=== PATIENT | male | born 1995 ===

== ENCOUNTER 2024-12-16 13:30 | Outpatient (RCR) | payer OTHER, SELFPAY ==
[2024-11-25 09:58] VITALS: BP 92/62; PULSE 60; TEMP 36.8
--- NOTE | 2024-11-25 11:02 | HO.PS.ADMBH ---
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 - Owe to everyone to be best he can be Gets at least 6hrs- /night feels a little rested TAkes a bit for brainmto sleep = brain conjours up scenarios, what friends are thinking Past Psychiatric History: [facility] hospitalization, started lexapro [facility] Medical History (Updated 11/28/24 @ 14:10 by Keyla Briceño MD) Autism No known health problems Narrative: PDD had special ed - IEP/504 Narrative: some kind surgery as youngester (hypospadius?) Family History: ?matgm-dep not sure Social History: [facility] in [place]- in preschool - College after HS- 7 years in preschool [employer] and then [employer]- in earlychildhood- strong work ethic= likes to help others like his dad did- Dad sudden 3 years ago = had just retired few weeks- Worked at [employer] 42 years, 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 [place]- Mom line 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 at [facility] [place] has a dog- has online group - friend wellness call - close daily- getting me to do more stuff support group in person iffy- not prof- a friend from there= - coworker close with Substance History: etoh socially - no drugs Trauma History: sudden of dad- came in on him- 10pm- dad not breathing- did cpr on him mom 911- a week later Diagnostics Vital Signs (24Hr): Vital Signs - 24 hr 11/25/24 09:58 Temperature 98.2 F Pulse Rate 60 Blood Pressure 92/62 Meds/Allergies Meds Home Medications ?Medication ?Instructions ?Recorded ?Confirmed ?Type escitalopram oxalate 10 mg tablet 10 mg PO DAILY 11/25/24 11/25/24 History Allergies Allergies Allergy/AdvReac Type Severity Reaction Status Date / Time No Known Allergies Allergy Verified 11/25/24 09:28 Mental Status Exam Mental Status Exam Patient Appearance: Appropriate (for most part) and Unkempt (mildly unshaven) Patient Orientation: Person Level of Consciousness: Awake and Appropriate Patient Behavior: Appropriate, Cooperative, Passive and Good Eye Contact Mood Description: Appropriate and Anxious Affect Description: Constricted Patient Cognition Impaired: No Ability to Follow Directions: Good Speech Pattern: Clear Hallucinations: None Delusions: Not Present Thought Process: Intact Thought Content: positive for Intact Depressive Symptoms: Difficulty Sleeping (settling mind at sleep ) Judgement: Fair Assessment & Plan Assessment & Plan (1) Autism: Status: Acute Code(s): F84.0 - Autistic disorder (2) Depressed: Status: Acute Code(s): F32.A - Depression, unspecified (3) Anxiety: Status: Acute Code(s): F41.9 - Anxiety disorder, unspecified Plan Work on accepting ongoing help /support- maybe some employment strategies with difficult boss situation no indication to change med though at some point might be helpful for ruminative thoughts in pm, hard to shut mind off before bed, consider guanfacine ? Patient educated on: medication risk/benefits and therapeutic strategies Informed Consent: understands Reason for continued partial hosp. stay Substantial Risk for: rapid decompensation Certification I certify that partial hospital treatment is medically necessary due to the symptoms and problems resulting from the patient's mental illness and the failure to treat the patient at the partial hospital level of care would likely result in the patient requiring inpatient psychiatric care which could not be prevented at a less intensive level of care. Time Spent With Patient Time: Total time managing care of this patient today ____ minutes.
--- NOTE | 2024-11-25 14:20 | PC.ADMIT ---
Patient is a 29 year old single male who was referred to [facility] by [facility] behavioral health unit where patient was admitted from 11/03-11/11. According to [facility] records patient reportedly was having dark thoughts that were increasing with intensity and frequency and he woke up in the morning and did not want to deal with it and wrapped a rope around neck and pulled on both sides. Patient told this group underwriter that he went to work afterwards. Prior to hospitalization patient stated, On November 03 did the attempt and went to work afterwards it was close to the end of the night and my friend reached out to me then I let him know what happened and he did a wellness call for me. Patient lives in a duplex next to his mother who lives on the other side. Patient stated his supports are, definitely my mother and a couple of friends are being extremely supportive and a co-worker who is really supportive . Patient is alert and oriented x4. He is calm and cooperative. He denied SI, no HI. He was given a copy of his safety plan if needed. Patient's medications were updated with patient and [facility]'s hospital discharge paperwork. He reports taking the medication as prescribed.
--- NOTE | 2024-12-08 12:40 | HO.PHPPROGNO ---
Subjective Subjective Date of Service: 12/08/24 Reason For Visit: MDD Interim History: Patient seen for follow-up. I'm struggling . I'm still very very downhill . Patient continues with profound depression, anhedonia, lack of motivation. There have been no considerable imprpvements in his mood aside from perhaps having more insight into how his would have impacted others. Before attempting I thought I was a burden on everyone, I was a waste of space . He says he still feels that way, but his awareness of how that could possibly impact other, especially loved ones, makes him not want to every act on these thoughts. Now that I see how much that would hurt my mom and nigele I rather just suffer in silence and be depressed than ever have another attempt. Nonehtless he is finding it difficult to function/take care of self and ADLs, low energy, inconsistent appeite and sleep. 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 Is feeling easily overwhelmed. Everything feels overwhelming . Deneis HI or AVH. No alcohol or substance use. Even maintaining his focus/attention, which have been long standing issues, for which he has developed good coping mechaisms for, he finds he feels unable to manage himself and still far from his baseline. No medication changes since admission (was seen by covering provider). He continues with Lexapro 10 mg. He does not feel any considerable improvement since starting the medication aside from moving away from SI. Denies adverse effects. Still the hopelessness and low self worth and symptoms of depression persist with feeling helpless, demoralized. hopeless and anxious ruminations and low self worth but trying to stay focused on positive protective factors. Medication Compliance: Yes Side effects from medications: No Attending Groups: Yes Review of Systems Acute medical concerns: No Mental Status Exam Mental Status Exam Narrative: Alert, oriented, in no acute distress. Restless, fidgeting, hyperactive. Unable to remain in chair for entire encounter, easily derailed by environment distractions, but polite, friendly and maintaining effort to engage. Forthcoming. Eye contact maintained. Mood depressed, affect anxious, constricted. Speech normal. Thought process linear, coherent. Thought content related to stressors, feeling helpless, demoralized. hopeless and anxious ruminations and low self worth but trying to stay focused on positive protective factors. Denies SI or HI. No paranoia or delusional content elicited. No evidence of psychosis. Insight and judgment - fair but adequate. Assessment & Plan Assessment & Plan (1) MDD (major depressive disorder), recurrent episode, severe: Status: Acute Code(s): F33.2 - Major depressive disorder, recurrent severe without psychotic features (2) ADHD (attention deficit hyperactivity disorder), combined type: Status: Acute Code(s): F90.2 - Attention-deficit hyperactivity disorder, combined type (3) Anxiety: Status: Acute Code(s): F41.9 - Anxiety disorder, unspecified Plan extend PHP start Abilify 1-2 qhs start Vyvanse 10 mg qam start guanfacine ER 1 mg qd prn plan to increase Lexapro to 15 mg qd next week cont milieu therapy safety plan reviewed cont to monitor Patient educated on: diagnosis and medication risk/benefits Informed Consent: understands Reason for contiued partial hosp. stay Substantial Risk for: inability to function and med/psych decompensation Certification I certify that partial hospital treatment is medically necessary due to the symptoms and problems resulting from the patient's mental illness and the failure to treat the patient at the partial hospital level of care would likely result in the patient requiring inpatient psychiatric care which could not be prevented at a less intensive level of care. Total time managing care of this patient today __40__ minutes. Discharge Plan Discharge Attending provider: Val Newby Medications: New lisdexamfetamine 10 mg capsule 10 mg PO QAM Qty: 30 0RF Rx Instructions: Partial Fill upon patient request. guanfacine 1 mg tablet extended release 24 hr 1 mg PO QAM Qty: 14 0RF aripiprazole 2 mg tablet 2 mg PO BEDTIME Qty: 14 0RF lisdexamfetamine 10 mg capsule 10 mg PO QAM Qty: 30 0RF Rx Instructions: Partial Fill upon patient request. No Action escitalopram oxalate 10 mg tablet 10 mg PO DAILY Print Language: Urdu
--- NOTE | 2024-12-09 23:59 | HO.PHPPROGNO ---
Subjective Subjective Date of Service: 12/08/24 Reason For Visit: MDD Assessment & Plan Certification I certify that partial hospital treatment is medically necessary due to the symptoms and problems resulting from the patient's mental illness and the failure to treat the patient at the partial hospital level of care would likely result in the patient requiring inpatient psychiatric care which could not be prevented at a less intensive level of care. Total time managing care of this patient today ____ minutes. Discharge Plan Discharge Attending provider: Val Newby Medications: New lisdexamfetamine 10 mg capsule 10 mg PO QAM Qty: 30 0RF Rx Instructions: Partial Fill upon patient request. guanfacine 1 mg tablet extended release 24 hr 1 mg PO QAM Qty: 14 0RF aripiprazole 2 mg tablet 2 mg PO BEDTIME Qty: 14 0RF lisdexamfetamine 10 mg capsule 10 mg PO QAM Qty: 30 0RF Rx Instructions: Partial Fill upon patient request. No Action escitalopram oxalate 10 mg tablet 10 mg PO DAILY Stand Alone Forms: Patient Portal Discharge page Print Language: Occitan
--- NOTE | 2024-12-16 22:44 | P.PNPSP_ITS ---
Subjective Subjective Date of Service: 12/16/24 Reason For Visit: MDD Interim History: Patient seen for follow-up, anticipating discharge at the end of program today. Been having a good week. FEeling more confident . Reports he is physically feeling well too none of the chest pain coming... and even if anxious I been able to stay calm . Cognitive anxiety severity down to 3/10 from 08/09. Depression severity 2/10 down from 08/09. Lexapro 10 mg, guanfacine er 1 mg, Abilify 2 mg. hydroxyzine prn. Follow up appointment on 01/23. ? Reports no acute issues or concerns. Medication compliant, medications well- tolerated. Denies any adverse effects.? Mood is stable.? Denies any hopelessness or SI. Denies thoughts of harming self or others at this time. Denies any aggressive ideation or HI. Denies any paranoia or AH or VH. Sleep, appetite, energy stable. Mental Status Exam Mental Status Exam Narrative: Alert, oriented, in no acute distress. Calm, cooperative. Mood stable, affect appropriate. Speech normal. Thought process linear, coherent, more goal- directed. Thought content related to stressors, future-oriented, denies any helplessness, hopelessness or SI.? No aggressive ideation or HI. No paranoia or delusional content elicited. No evidence of psychosis. Insight and judgment fair-good. Assessment & Plan Assessment & Plan (1) MDD (major depressive disorder), recurrent episode, severe: Status: Acute Code(s): F33.2 - Major depressive disorder, recurrent severe without psychotic features (2) ADHD (attention deficit hyperactivity disorder), combined type: Status: Acute Code(s): F90.2 - Attention-deficit hyperactivity disorder, combined type (3) Anxiety: Status: Acute Code(s): F41.9 - Anxiety disorder, unspecified Plan [facility]charge from [facility] Continue regular medications? Refills sent to pharmacy Will defer further medication management to outpatient provider *Safety plan reviewed *Discharge diagnoses, treatment course, discharge plan have been reviewed with patient (including medication regime, medication management, potential side effects) as well as treatment rationale were also revisited *Discharge paperwork signed and given to patient, copy sent for scanning to chart Patient educated on: diagnosis and medication risk/benefits Informed Consent: understands Reason for contiued partial hosp. stay Substantial Risk for: stable for discharge Certification I certify that partial hospital treatment is medically necessary due to the symptoms and problems resulting from the patient's mental illness and the failure to treat the patient at the partial hospital level of care would likely result in the patient requiring inpatient psychiatric care which could not be prevented at a less intensive level of care. Total time managing care of this patient today __30__ minutes. Discharge Plan Discharge Attending provider: Val Newby Medications: New aripiprazole 2 mg tablet 2 mg PO BEDTIME Qty: 14 0RF dextroamphetamine-amphetamine [Adderall] 5 mg tablet 5 mg PO DAILY Qty: 14 0RF Rx Instructions: Partial Fill upon patient request. Continued guanfacine 1 mg tablet extended release 24 hr 1 mg PO QAM Qty: 30 0RF No Action escitalopram oxalate 10 mg tablet 10 mg PO DAILY Stand Alone Forms: Patient Portal Discharge page Patient Education: ADHD in Adults (ED), Depression (ED), Depression (DC), Anxiety (ED) Print Language: Slovak
== END 2024-12-16 23:59 | disposition home or self-care (01) ==
LOC: HO.PHPA 13:30
PROVIDERS: Visit Provider Psychiatry & Neurology Psychiatry
DX: F33.2 Major depressive disorder, recurrent severe without psychotic features (principal); F90.2 Attention-deficit hyperactivity disorder, combined type; F41.9 Anxiety disorder, unspecified; F84.0 Autistic disorder
CPT/HCPCS: 90791; 90853